=== PATIENT | female | born 1935 | race African-American/Black ===

== ENCOUNTER 2016-12-28 16:45 | Inpatient (IN) | payer MEDICARE, OTHER ==
[~2016-12-28] VITALS: Ht 149.9 cm; Wt 52.2 kg
[2016-12-28] MEDS ORDERED: KETOROLAC 30MG/ML VIAL IV STA (18:47)
[2016-12-28] MEDS ORDERED: SODIUM CHLORIDE 0.9% 1,000 ML IV ONE (18:47)
[2016-12-28] MEDS ORDERED: ONDANSETRON HCL 4MG/2ML VIAL IV STA (18:47)
[2016-12-28 19:22] LABS: CHLORIDE 90 mEq/L (98-107)
[2016-12-28 19:29] LABS: CARBON DIOXIDE 29 mEq/L (21-32)
[2016-12-28 19:31] LABS: CREATINE KINASE 172 IU/L (26-192)
[2016-12-28 20:19] LABS: HEMATOCRIT. 31.3 % (36.0-48.0); HEMOGLOBIN. 10.6 g/dL (12.0-16.0); LYMPHOCYTES % 15.4 % (20.0-50.0); MEAN CORPUSCULAR HEMOGLOBIN 30.6 pg (28.0-32.0); MEAN CORPUSCULAR VOLUME 90.2 fL (81.0-99.0); MEAN PLATELET VOLUME 7.8 fl (7.4-10.4); MONOCYTES % 7.3 % (2.0-8.0); NEUTROPHILS % 75.3 % (40.0-76.0); PLATELET 286 x1000/uL (130-400); RED BLOOD CELL COUNT 3.47 mill/uL (4.2-5.4); RED CELL DISTRIBUTION WIDTH 13.1 % (11.6-14.6)
[2016-12-28] MEDS ORDERED: SODIUM CHLORIDE 0.9% 1,000 ML IV SCH ×2 (20:32→23:52)
[2016-12-28] MEDS ORDERED: IOHEXOL-300 100 ML BOTTLE ONE (20:43)
[2016-12-28] MEDS ORDERED: GUAIFENESIN 200MG/10ML SUGAR FREE UDC PO PRN (21:30)
[2016-12-28] MEDS ORDERED: NITROGLYCERIN 0.4MG TABLET SL SL PRN (21:30)
[2016-12-28] MEDS ORDERED: ACETAMINOPHEN 325MG TABLET PO PRN (21:30)
[2016-12-28] MEDS ORDERED: CLONIDINE 0.1MG TABLET PO PRN (21:30)
[2016-12-28] MEDS ORDERED: ONDANSETRON HCL 4MG/2ML VIAL IV PRN (21:30)
[2016-12-28] MEDS ORDERED: DOCUSATE SODIUM 100MG CAPSULE PO PRN (21:30)
[2016-12-28] MEDS ORDERED: MAGNESIUM/ALUMINUM HYDROXIDE/SIMETHICONE 30ML UDC PO PRN (21:30)
[2016-12-28] MEDS ORDERED: IPRATROPIUM/ALBUTEROL 0.5-3(2.5)MG/3ML NEB INH PRN (21:30)
[2016-12-28] MEDS ORDERED: DIPHENHYDRAMINE 50MG/ML VIAL IV PRN (21:30)
[2016-12-28] MEDS ORDERED: DEXTROSE 50% WATER 50ML SYRINGE IV PRN (21:30)
[2016-12-28] MEDS ORDERED: MORPHINE SULFATE 2 MG/ML CPJ (NOT FOR IM USE) IV PRN (21:54)
[2016-12-28] MEDS ORDERED: TRAMADOL 50MG TABLET PO PRN (21:56)
[2016-12-28] MEDS ORDERED: NA PHOS,M-B/NA PHOS,DI-BA ENEMA 118ML PR PRN (22:00)
[2016-12-28] MEDS ORDERED: ZOLPIDEM TARTRATE 5MG TABLET PO PRN (22:00)
[2016-12-28 22:30] LABS: VITAMIN B12 SERUM 595 pg/mL (211-911)
[2016-12-28 22:34] LABS: FOLIC ACID (FOLATE) SERUM > 20.00 ng/mL (>5.38)
[2016-12-28 23:11] LABS: CLARITY URINE CLEAR (CLEAR); COLOR URINE YELLOW (YELLOW); GLUCOSE URINE NEGATIVE (NEGATIVE); KETONES URINE NEGATIVE (NEGATIVE); LEUKOCYTE ESTERASE URINE NEGATIVE (NEGATIVE); NITRITE URINE NEGATIVE (NEGATIVE); OCCULT BLOOD URINE NEGATIVE (NEGATIVE); PROTEIN URINE NEGATIVE (NEGATIVE); SPECIFIC GRAVITY URINE 1.028 (1.005-1.030); UROBILINOGEN URINE 0.2 E.U./dL (0.2-1.0)
[2016-12-28 23:13] LABS: *AMPHETAMINES SCREEN URINE NEGATIVE (NEGATIVE); *BARBITURATES SCREEN URINE NEGATIVE (NEGATIVE); *BENZODIAZEPINES SCREEN URINE NEGATIVE (NEGATIVE); *COCAINE SCREEN URINE NEGATIVE (NEGATIVE); CANNABINOID URINE SCREEN NEGATIVE (NEGATIVE); METHADONE URINE SCREEN NEGATIVE (NEGATIVE); OPIATES URINE SCREEN NEGATIVE (NEGATIVE); PHENCYCLIDINE URINE SCREEN NEGATIVE (NEGATIVE)
[2016-12-28 23:18] LABS: CREATINE KINASE 162 IU/L (26-192); CREATINE KINASE MB FRACTION 1.4 ng/mL (0.5-3.6)
[2016-12-28 23:22] LABS: TROPONIN I < 0.02 ng/mL (0.00-0.04)
[2016-12-29] VITALS: BP 101/81
[2016-12-29 00:10] VITALS: BP 101/81
[2016-12-29] MEDS ORDERED: BLOOD SUGAR DIAGNOSTIC STRIP TEST SCH (07:10)
[2016-12-29 07:39] VITALS: BP 117/67
[2016-12-29] MEDS ORDERED: INSULIN LISPRO 100 UNITS/ML SUBCUT SCH (07:40)
[2016-12-29] MEDS ORDERED: ENOXAPARIN 40MG/0.4ML SYR SUBCUT SCH (09:00)
[2016-12-29] MEDS ORDERED: FAMOTIDINE 20MG/2ML VIAL IV SCH ×2 (09:00)
[2016-12-29] MEDS ORDERED: LISINOPRIL 20MG TABLET PO SCH (09:00)
[2016-12-29 09:14] LABS: CREATINE KINASE 129 IU/L (26-192); CREATINE KINASE MB FRACTION 1.2 ng/mL (0.5-3.6)
[2016-12-29 09:27] LABS: TROPONIN I < 0.02 ng/mL (0.00-0.04)
[2016-12-29 12:19] VITALS: BP 107/59
[2016-12-29 16:00] VITALS: BP 141/55
[2016-12-29] MEDS ORDERED: HALOPERIDOL 1MG TABLET PO PRN (16:45)
== END 2016-12-29 16:50 | disposition left against medical advice (07) | DRG 640 ==
LOC: ER 18:19 → 8WST 20:14 → EDBEDREQ 20:19 → EDBEDREQTM 20:19 → ENRESERV 21:08 → SUPCPDRO 21:20
PROVIDERS: ADMIT Internal Medicine; ATTEND Internal Medicine
DX: E87.0 Hyperosmolality and hypernatremia (principal); G93.40 Encephalopathy, unspecified; M25.551 Pain in right hip; Z53.21 Procedure and treatment not carried out due to patient leaving prior to being seen by health care provider; E11.9 Type 2 diabetes mellitus without complications; W18.30XA Fall on same level, unspecified, initial encounter; I10 Essential (primary) hypertension; Z79.4 Long term (current) use of insulin; Z79.899 Other long term (current) drug therapy; Y93.89 Activity, other specified; Y92.098 Other place in other non-institutional residence as the place of occurrence of the external cause; Y99.8 Other external cause status
CPT/HCPCS: 36415; 70450; 71010; 71260; 72170; 74177; 80048; 80061; 80305; 81003; 82550; 82553; 82607; 82746; 82962; 83036; 83540; 83550; 84300; 84443; 84484; 85025; 86850; 86900; 87086; 93005; 93306; 93970; 96361; 96374; 96375; 97162; 99285; J1650; J1885; J2405; J3490; J7030; Q9967

== ENCOUNTER 2021-10-01 14:25 | Inpatient (IN) | payer MEDICAID, MEDICARE, OTHER ==
[~2021-10-01] VITALS: Ht 152.4 cm; Wt 50.9 kg
[2021-10-01] MEDS: DIPHENHYDRAMINE 50MG/ML VIAL IV SCH ×2 (03:00→18:58)
[2021-10-01] MEDS ORDERED: EPINEPHRINE 1:1000 1 MG/ML AMP IM ONE (14:45)
[2021-10-01] MEDS ORDERED: DIPHENHYDRAMINE 50MG/ML VIAL IV ONE (14:45)
[2021-10-01] MEDS ORDERED: METHYLPREDNISOLONE SOD SUCC 125 MG/2 ML VIAL IV ONE (14:45)
[2021-10-01 15:58] LABS: EOSINOPHILS % 0.2 % (0.0-5.0); HEMATOCRIT. 35.4 % (36.0-48.0); HEMOGLOBIN. 11.8 g/dL (12.0-16.0); LYMPHOCYTES % 41.3 % (20.0-50.0); MEAN CORPUSCULAR HEMOGLOBIN 30.4 pg (28.0-32.0); MEAN CORPUSCULAR VOLUME 91.1 fL (81.0-99.0); MEAN PLATELET VOLUME 7.3 fl (7.4-10.4); MONOCYTES % 13.7 % (2.0-8.0); NEUTROPHILS % 43.8 % (40.0-76.0); PLATELET 341 x1000/uL (130-400); RED BLOOD CELL COUNT 3.89 mill/uL (4.2-5.4); RED CELL DISTRIBUTION WIDTH 12.8 % (11.6-14.6)
[2021-10-01 16:02] LABS: CHLORIDE 79 mEq/L (98-107)
[2021-10-01 16:13] LABS: ETHANOL BLOOD < 10 mg/dL
[2021-10-01] MEDS ORDERED: POTASSIUM CHLORIDE INJ 40 MEQ in DEXT 5% WATER 250 ML IV ONE (16:45)
[2021-10-01] MEDS ORDERED: SODIUM CHLORIDE 0.9% 1,000 ML IV ONE (16:45)
[2021-10-01] MEDS ORDERED: IPRATROPIUM/ALBUTEROL 0.5-3(2.5)MG/3ML NEB HHN PRN (18:30)
[2021-10-01] MEDS ORDERED: ONDANSETRON HCL 4MG/2ML INJ IV PRN (18:30)
[2021-10-01] MEDS ORDERED: EPINEPHRINE 1:1000 1 MG/ML AMP INJ NR (18:30)
[2021-10-01] MEDS ORDERED: CLONIDINE 0.1MG TABLET PO PRN (18:30)
[2021-10-01] MEDS ORDERED: ACETAMINOPHEN 325MG TABLET PO PRN (18:30)
[2021-10-01] MEDS: KCL 20MEQ/100ML X 2 FOR TOTAL KCL 40MEQ/200ML IV SCH ×2 (18:45→19:50)
[2021-10-01] MEDS: METHYLPREDNISOLONE SOD SUCC 40 MG/ML VIAL IV SCH (19:00)
[2021-10-01] MEDS: SODIUM CHLORIDE 0.9% 1,000 ML IV SCH (19:01)
[2021-10-01] MEDS: FAMOTIDINE 20MG/2ML VIAL IV SCH (21:00)
[2021-10-02] MEDS: METHYLPREDNISOLONE SOD SUCC 40 MG/ML VIAL IV SCH ×3 (02:30→18:30)
[2021-10-02] MEDS ORDERED: HALOPERIDOL LACTATE 5MG/ML VIAL IM PRN (05:00)
[2021-10-02 08:00] VITALS: BP 118/59
[2021-10-02] MEDS: FAMOTIDINE 20MG/2ML VIAL IV SCH ×2 (09:00→21:01)
[2021-10-02] MEDS: DIPHENHYDRAMINE 50MG/ML VIAL IV SCH ×6 (09:37→23:01)
[2021-10-02] MEDS: AMLODIPINE 5MG TABLET PO SCH (09:37)
[2021-10-02] MEDS ORDERED: METF-873 MT (10:41)
[2021-10-02] MEDS ORDERED: LISI40TA13 MT (10:41)
[2021-10-02] MEDS ORDERED: LOSA50TA41 MT (10:41)
[2021-10-02] MEDS ORDERED: CHLO25TA2 MT (10:41)
[2021-10-02] MEDS ORDERED: *PATIENT'S OWN MEDICATION STORAGE XX SCH (11:00)
[2021-10-02] MEDS: SODIUM CHLORIDE 0.9% 1,000 ML IV SCH (11:10)
[2021-10-02 12:00] VITALS: BP 136/61
[2021-10-02 16:00] VITALS: BP 157/63
[2021-10-02 16:57] LABS: CHLORIDE 88 mEq/L (98-107)
[2021-10-02 17:31] LABS: CLARITY URINE CLEAR (CLEAR); COLOR URINE YELLOW (YELLOW); KETONES URINE NEGATIVE (NEGATIVE); LEUKOCYTE ESTERASE URINE NEGATIVE (NEGATIVE); NITRITE URINE NEGATIVE (NEGATIVE); OCCULT BLOOD URINE NEGATIVE (NEGATIVE); PH URINE 7.5 (4.5-8.0); PROTEIN URINE NEGATIVE (NEGATIVE); UROBILINOGEN URINE 0.2 E.U./dL (0.2-1.0)
[2021-10-02] MEDS ORDERED: DEXTROSE 5% WATER 1,000 ML IV SCH (17:45)
[2021-10-02] MEDS ORDERED: POTASSIUM CHLORIDE 20MEQ/PACKET PO NR (17:45)
[2021-10-02 17:52] LABS: *AMPHETAMINES SCREEN URINE NEGATIVE (NEGATIVE); *BARBITURATES SCREEN URINE NEGATIVE (NEGATIVE); *BENZODIAZEPINES SCREEN URINE NEGATIVE (NEGATIVE); *COCAINE SCREEN URINE NEGATIVE (NEGATIVE); CANNABINOID URINE SCREEN NEGATIVE (NEGATIVE); METHADONE URINE SCREEN NEGATIVE (NEGATIVE); OPIATES URINE SCREEN NEGATIVE (NEGATIVE); PHENCYCLIDINE URINE SCREEN NEGATIVE (NEGATIVE)
[2021-10-02] MEDS ORDERED: POTASSIUM CHLORIDE INJ 40 MEQ in DEXT 5% WATER 250 ML IV ONE (18:15)
[2021-10-02 19:32] VITALS: BP 118/59
[2021-10-02] MEDS ORDERED: DEXTROSE 50% WATER 50ML SYRINGE IV PRN (19:45)
[2021-10-02] MEDS ORDERED: KCL 20MEQ/100ML X 2 FOR TOTAL KCL 40MEQ/200ML IV SCH (20:00)
[2021-10-02] MEDS: BLOOD SUGAR DIAGNOSTIC STRIP TEST SCH (21:10)
[2021-10-02] MEDS: INSULIN LISPRO 100 UNITS/ML SUBCUT SCH (21:17)
[2021-10-03] VITALS: BP 137/59
[2021-10-03] MEDS: METHYLPREDNISOLONE SOD SUCC 40 MG/ML VIAL IV SCH ×2 (02:43→11:14)
[2021-10-03] MEDS: DIPHENHYDRAMINE 50MG/ML VIAL IV SCH ×6 (02:43→22:30)
[2021-10-03] MEDS: INSULIN LISPRO 100 UNITS/ML SUBCUT SCH ×4 (06:45→21:14)
[2021-10-03] MEDS: SODIUM CHLORIDE 0.9% 1,000 ML IV SCH (06:49)
[2021-10-03 07:10] LABS: HEMATOCRIT. 37.8 % (36.0-48.0); MEAN CORPUSCULAR HEMOGLOBIN 30.2 pg (28.0-32.0); MEAN CORPUSCULAR VOLUME 94.8 fL (81.0-99.0); MEAN PLATELET VOLUME 7.3 fl (7.4-10.4); PLATELET 317 x1000/uL (130-400); RED BLOOD CELL COUNT 3.99 mill/uL (4.2-5.4); RED CELL DISTRIBUTION WIDTH 13.2 % (11.6-14.6)
[2021-10-03 07:20] LABS: CHLORIDE 89 mEq/L (98-107)
[2021-10-03] MEDS: BLOOD SUGAR DIAGNOSTIC STRIP TEST SCH ×4 (07:20→21:15)
[2021-10-03 08:00] VITALS: BP 167/77
[2021-10-03] MEDS: FAMOTIDINE 20MG/2ML VIAL IV SCH (08:51)
[2021-10-03] MEDS: AMLODIPINE 5MG TABLET PO SCH (08:51)
[2021-10-03 10:13] LABS: PLATELET ESTIMATE NORMAL
[2021-10-03] MEDS ORDERED: POTASSIUM CHLORIDE 20MEQ TABLET SR PO NR (10:45)
[2021-10-03 12:00] VITALS: BP 113/65
[2021-10-03 16:00] VITALS: BP 148/63
[2021-10-03] MEDS: PREDNISONE 20MG TABLET PO SCH (17:41)
[2021-10-03 20:00] VITALS: BP 172/66
[2021-10-04] VITALS: BP 149/57
[2021-10-04] MEDS: DIPHENHYDRAMINE 50MG/ML VIAL IV SCH (02:30)
[2021-10-04 04:00] VITALS: BP 153/59
[2021-10-04 06:15] LABS: BASOPHILS % 0.4 % (0.0-2.0); HEMOGLOBIN. 11.1 g/dL (12.0-16.0); LYMPHOCYTES % 13.2 % (20.0-50.0); MEAN CORPUSCULAR HEMOGLOBIN 30.3 pg (28.0-32.0); MEAN CORPUSCULAR VOLUME 90.1 fL (81.0-99.0); MEAN PLATELET VOLUME 7.6 fl (7.4-10.4); MONOCYTES % 7.4 % (2.0-8.0); PLATELET 322 x1000/uL (130-400); RED BLOOD CELL COUNT 3.67 mill/uL (4.2-5.4); RED CELL DISTRIBUTION WIDTH 13.4 % (11.6-14.6)
[2021-10-04] MEDS: BLOOD SUGAR DIAGNOSTIC STRIP TEST SCH ×2 (06:19→12:23)
[2021-10-04 07:01] LABS: CHLORIDE 93 mEq/L (98-107)
[2021-10-04] MEDS: INSULIN LISPRO 100 UNITS/ML SUBCUT SCH ×2 (07:50→12:23)
[2021-10-04 08:00] VITALS: BP 139/73
[2021-10-04] MEDS ORDERED: P20 MT (08:08)
[2021-10-04] MEDS ORDERED: AMLO5TAB88 MT (08:08)
[2021-10-04] MEDS ORDERED: FAMO20TA8 MT (08:08)
[2021-10-04] MEDS ORDERED: FAMOTIDINE 20MG TABLET PO SCH (09:00)
[2021-10-04] MEDS: PREDNISONE 20MG TABLET PO SCH (10:00)
[2021-10-04] MEDS: AMLODIPINE 5MG TABLET PO SCH (10:00)
[2021-10-04 12:00] VITALS: BP 137/47
[2021-10-04 16:00] VITALS: BP 120/50
[2021-10-04 16:57] VITALS: BP 120/50
== END 2021-10-04 18:19 | disposition home or self-care (01) | DRG 915 ==
LOC: ER 14:25 → 6WST 17:36 → EDBEDREQ 17:38 → EDBEDREQTM 17:38 → ENRESERV 20:08 → CANRESERV 20:08 → ENRESERV 23:03 → ER 23:21 → EDBEDREQ 10-02 06:08 → 6WST 10-02 10:10
PROVIDERS: ADMIT Internal Medicine; ATTEND Internal Medicine
DX: T78.3XXA Angioneurotic edema, initial encounter (principal); G93.41 Metabolic encephalopathy; E87.1 Hypo-osmolality and hyponatremia; I11.9 Hypertensive heart disease without heart failure; E87.6 Hypokalemia; E11.9 Type 2 diabetes mellitus without complications; D64.9 Anemia, unspecified; E83.52 Hypercalcemia; I25.10 Atherosclerotic heart disease of native coronary artery without angina pectoris; T46.4X5A Adverse effect of angiotensin-converting-enzyme inhibitors, initial encounter; Y92.89 Other specified places as the place of occurrence of the external cause; R41.0 Disorientation, unspecified
CPT/HCPCS: 36415; 80048; 80053; 80305; 80320; 81003; 82533; 82962; 83036; 83735; 83930; 83935; 83970; 84443; 84484; 85025; 86850; 86900; 97161; 97162; 97165; 97166; 97535; 99291; J1200; J1630; J1815; J2920; J2930; J3480; J3490; J7030; J7060; J7070; J7512; G0480